=== PATIENT | female | born 1955 | race Caucasian/White ===

== ENCOUNTER → 2018-12-18 12:41 | Outpatient (CLI) | payer OTHER, SELFPAY ==
--- NOTE | 2018-12-18 | FLU_PTH ---
PATIENT: BOBBY SILVEIRA LOC: [facility] U#:[id number] AGE/SX: 69/F ROOM: RE12/18/[address]: Dr. Renea Saunders MD : [id number] BED: DIS: SPEC #: [id number] RECD: 12/18/18 13:33 STATUS: [place] BRADY #: [id number] SHARAN: 12/18/18 00:[address]: Renea Saunders DEPT: CYTOLOGY RECD BY: Eloy Kiser ENTERED: 12/18/18 13:33 SP TYPE: Fluid OTHR DR: No Primary Care Phys Tissues: A - Thyroid gland, NOS B - Thyroid gland, NOS Procedures: Special Stain Group II Surgery Specimen Level IV Cytospin Fluid HEADER OPERATION: Ultrasound-guided fine needle aspiration left thyroid PRE-OP DIAGNOSIS: Thyroid nodules TISSUE SUBMITTED: A - FNA left thyroid for cytology, B - FNA left thyroid slides x6 DIAGNOSIS CYTOLOGY A. Left thyroid nodule fluid, ultrasound-guided FNA (cytospin and cell block): Consistent with benign follicular nodule. B. Left thyroid nodule, ultrasound-guided FNA (smears): Consistent with benign follicular nodule. Adequate for evaluation. SJ:rg 12/21/18 COMMENT Correlation with clinical, radiologic findings and appropriate follow up are necessary. CYTOLOGY STUDY Slides are reviewed. CYTOLOGY GROSS A - Received is 30 ml of red cloudy fluid labeled with the patient's name and and designated per the requisition as left thyroid. Submitted for cytology preparation including cell block. B - Received are six smears labeled with the patient's name and designated per the requisition as left thyroid. Submitted for staining. / 12/18/18 TC:5 CPT: 28696, 92514, 27036
== END ==
PROVIDERS: Referring Provider Surgery; Visit Provider Surgery
DX: E04.1 Nontoxic single thyroid nodule (principal)
CPT/HCPCS: 88108; 88305; 88313

== ENCOUNTER 2021-08-14 17:20 | Outpatient (CLI) | payer OTHER, SELFPAY ==
[2021-08-14 17:41] VITALS: BP 139/88; PULSE 88; RESP 16; TEMP 36.9; O2SAT 100; BMI 44.6
[2021-08-14] MEDS: 0.9% Saline Lock 10 ML Syringe IV (17:56)
[2021-08-14 18:26] VITALS: BP 133/80; PULSE 84; RESP 16; TEMP 37; O2SAT 97
[2021-08-14 19:26] VITALS: BP 124/80; PULSE 82; RESP 16; TEMP 36.9; O2SAT 97
== END 2021-08-14 19:30 | disposition home or self-care (01) ==
LOC: MS3OUT 17:21 → MS3 17:21
PROVIDERS: Referring Provider Nurse Practitioner Adult Health; Visit Provider Nurse Practitioner Adult Health
DX: Z23 Encounter for immunization (principal); U07.1 COVID-19
CPT/HCPCS: J7050; M0243; A4216; Q0244